=== PATIENT | female | born 1960 | race Caucasian/White ===

== ENCOUNTER 2020-03-01 12:30 | Inpatient (IN) ==
[2020-03-01] MEDS ORDERED: ONDANSETRON INJ 2 MG/ML 2 ML VIAL IV STA (12:55)
[2020-03-01] MEDS ORDERED: MoRPHine SULFATE 4 MG/ML 1 ML CARP\\VIAL IV STA (12:55)
[2020-03-01] MEDS ORDERED: SODIUM CHLORIDE 0.9% 1000ML 1,000 ML IV SCH (12:56)
--- NOTE | 2020-03-01 13:05 | Emergency Department Note ---
History of Present Illness General Chief complaint: Abdominal Pain Stated complaint: SEVERE ABDOMINAL PAIN Time Seen by Provider: 03/01/20 12:36 History of Present Illness Maximum Pain Intensity: 9 Patient is a 60-year-old female who generally enjoys good health who was referred to the emergency department by her primary care provider's office for evaluation of abdominal pain x1 day. Patient relates that she woke up from sleep around 2 AM yesterday morning with severe upper abdominal pain. She states the pain is constant in nature and radiates toward the lower abdomen. She states that the pain is worse with eating or drinking, and she feels better when she is hunched and doubled over. She noted some indigestion yesterday when she was laying flat, but does not experience any of this when she is sitting upright. No nausea, vomiting, diarrhea or urinary symptoms although she does admit to anorexia. She tried calling her primary care provider's office they instructed her to take Tylenol which she did and it did not help. She is never had pain similar to this previously. She denies any unusual food or water consumption, no alcohol use, she does not smoke. No sick contacts at home. She had a colonoscopy about a month ago, which was clear. She does not need repeat scope for 10 years. She denies any chest pain, palpitations or shortness of breath. No fevers. She is status post x2 and JOSH/BSO. Patient notes that she went to the [facility] office today for a COVID-19 swab. She was told that in order to make a doctor's appointment at the office that she would need to have a COVID swab because she had an exposure at work. 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 She was notified that on February 13, she came into contact with a coworker who tested positive for COVID-19. The patient herself was not tested by work, and was told to monitor her symptoms for which she has had none. When she called the doctor's office regarding her current symptoms, she was told that she could not make an appointment until she had a negative COVID-19 swab which was done today and is pending. Home Medications Home Medications Medication Instructions Recorded Confirmed Type lactobacillus combination no.4 3,000 mmu cells PO DAILY 03/01/20 03/01/20 History [Probiotic] loratadine 10 mg PO QAM 03/01/20 03/01/20 History magnesium 250 mg PO QAM 03/01/20 03/01/20 History pediatric multivitamin [Gummy 2 tab PO QAM 03/01/20 03/01/20 History Swirls] Allergies Allergy/AdvReac Type Severity Reaction Status Date / Time No Known Allergies Allergy Verified 03/01/20 14:16 Past Med/Surg History Medical History Dyslipidemia Hodgkin's lymphoma As a child Surgical History H/O section History of colonoscopy History of foot surgery History of laparoscopy S/P JOSH-BSO Family History (Updated 03/01/20 @ 16:32 by Danica Quiles PA-C) Other Cancer Diabetes Hypertension Social History Smoking Status: Never smoker Hx Alcohol Use: No Hx Substance Use: No marital status: Current Living Situation: Family current occupational status: employed 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 [employer] Feels Safe at Home: Yes Review of Systems A total of 10 systems reviewed and were otherwise negative Physical Exam Vital Signs Vital Signs - 24 hr 03/01/20 12:32 03/01/20 13:31 03/01/20 14:00 Temperature 37.0 C Temperature Source Oral Pulse Rate 73 54 L 57 L Pulse Rate from SpO2 Sensor 54 L 57 L Respiratory Rate 18 14 13 Blood Pressure 118/82 122/68 112/69 Blood Pressure Mean 94 82 77 Pulse Oximetry 98 93 93 Oxygen Delivery Method Room Air Room Air Room Air Sepsis Recent Fever Within 48 Hours No Sepsis New/Unexplained Change in Mental Status N/A Sepsis Action Taken by Nursing No Action Required 03/01/20 14:30 03/01/20 15:00 03/01/20 15:30 Temperature Temperature Source Pulse Rate 56 L 64 73 Pulse Rate from SpO2 Sensor 56 L 64 70 Respiratory Rate 13 14 18 Blood Pressure 109/60 110/61 143/81 H Blood Pressure Mean 73 77 93 Pulse Oximetry 94 95 98 Oxygen Delivery Method Room Air Room Air Room Air Sepsis Recent Fever Within 48 Hours Sepsis New/Unexplained Change in Mental Status Sepsis Action Taken by Nursing CONSTITUTIONAL: Patient is an uncomfortable but nontoxic appearing 60-year-old female who is awake and alert and in mild distress due to her stated complaint. EYES: Pupils equal, round, reactive to light and accommodation. EOMs intact without nystagmus. Sclera are anicteric. ENT: Tympanic membranes intact, with normal landmarks. External canals are clear. Oral and nasopharynx are clear. Mucous membranes are moist, no lesions, tongue and gums appear normal. CARDIOVASCULAR: Regular rate and rhythm, with normal S1 and S2, no murmur or gallop or rub is heard. Peripheral pulses easily palpable. RESPIRATORY: Breath sounds equal and clear to auscultation without wheezes, rales, or rhonchi heard. Full and equal chest expansion without accessory muscle use or retractions. ABDOMEN: Bowel sounds are present and hyperactive, multiple well-healed surgical scars are noted throughout the anterior abdomen. The abdomen is soft, nondistended, mildly tender to palpation in the left upper quadrant, the left midabdomen, the left lower quadrant and in the suprapubic region. No pain in the right lower quadrant over McBurney's point. No pain in the right upper quadrant. No guarding or rebound. INTEGUMENTARY: No lesions or rash, normal skin turgor. LYMPH: No lymphadenopathy. Course Course The patient was seen and assessed as above. Old records are reviewed. She has no prior visits to this facility. She presents the emergency department for evaluation of 24 hours of diffuse abdominal pain. IV lock was initiated and laboratory studies were collected. She was made n.p.o. She was hydrated normal saline solution medicated with Zofran 4 mg and morphine 4 mg. CBC with diff erential, CMP, lipase and urinalysis were collected. CT scan of abdomen and pelvis with IV contrast was ordered. Laboratory studies noted a slightly elevated white count at 11,800, left shift and bandemia noted. No anemia. Electrolytes, renal functions liver functions and lipase are within normal limits. Urine microscopy notes 5-10 RBCs, greater than 30 epithelial cells and calcium oxalate crystals, otherwise is negative and without signs of infection. Patient was reassessed frequently, she felt improved with the IV pain medication, and was made aware of the results of her laboratory studies. Patient was reassessed when she returned from [place] CT scan of the abdomen and pelvis with IV contrast notes a small bowel obstruction with a transition point located within the mid abdomen. A small amount of ascites is noted, as well as left-sided mesenteric edema, likely reactive to the small bowel obstruction. Patient history, presentation and ED work-up were reviewed with attending alonzo schmitt. Patient was made aware of the results of her CT scan, and that further care in the hospital was recommended. [facility] as well as general surgery from [facility]. They will both be involved in managing the alonzo latham during her stay. Reevaluation(s) Reevaluation #1: Patient reassessed, feeling more improved with the IV pain medications, rating her pain a 4/10 down from a 9/10. Labs are still pending. Declined any additional medication needs. Time: 13:53 Reevaluation #2: Labs reviewed. She was told she should be going for CT shortly. Time: 14:16 Time: 15:17 Additional Reevaluation(s): CT is back, reviewed findings with patient. Admission/Observation recommended. Consultations Consultation #1: [facility]ist, Madyson Quiles PA-C Time: 15:21 Consultation #2: [facility], Karolyn Posey PA-C Time: 15:26 Administered Medications Discontinued Medications Sodium Chloride (Nss 1000ml) 1,000 mls @ 999 mls/hr IV .Q1H1M FERNANDEZ Stop: 03/01/20 13:56 Last Infusion: 03/01/20 14:28 Dose: 0 mls/hr Documented by: [id number] Admin: 03/01/20 13:25 Dose: 999 mls/hr Documented by: [id number] Ioversol (Ioversol 100ml) 93 ml IV ONCE ONE Stop: 03/01/20 14:48 Last Admin: 03/01/20 14:47 Dose: 93 ml Documented by: [id number] Morphine Sulfate (Morphine Sulfate 4 Mg/Ml 1 Ml Carp\Vial) 4 mg IV NOW STA Stop: 03/01/20 12:56 Last Admin: 03/01/20 13:25 Dose: 4 mg Documented by: [id number] Ondansetron HCl (Ondansetron Inj 2 Mg/Ml 2 Ml Vial) 4 mg IV NOW STA Stop: 03/01/20 12:56 Last Admin: 03/01/20 13:25 Dose: 4 mg Documented by: [id number] Medical Decision Making Differential Diagnosis Differential diagnoses entertained included UTI, pyelonephritis, renal colic, acute diverticulitis, bowel obstruction, perforation, abscess, mass or malignancy, infectious versus inflammatory colitis/enteritis, pancreatitis, biliary colic, acute cholecystitis, among others. Medical Records Attestation: I reviewed the patient's medical records. Home Medications Current Medication List: was personally reviewed by me Laboratory Data Attestation: I reviewed the patient's lab results. Result diagrams: 03/01/20 13:13 03/01/20 13:13 Lab Results 03/01/20 03/01/20 03/01/20 Range/Units 13:13 13:13 13:13 WBC 11.80 H (4.8-10.8) K/uL RBC 4.80 (4.2-5.4) M/uL Hgb 14.7 (12.0-16.0) g/dL Hct 44.2 (37-47) % MCV 92.1 (80-100) fL MCH 30.6 (25-34) pg MCHC 33.3 (32-36) g/dL RDW Std Deviation 45.5 (36.4-46.3) fL RDW Coeff of Colten 13.5 (11.5-14.5) % Plt Count 331 (130-400) K/uL MPV 10.7 H (7.4-10.4) fL Immature Gran % (Auto) 0.3 % Neut % (Auto) 73.8 % Lymph % (Auto) 16.1 % [place] % (Auto) 7.9 % Eos % (Auto) 1.7 % Baso % (Auto) 0.2 % Neut # (Auto) 8.72 H (1.4-6.5) K/uL Lymph # (Auto) 1.90 (1.2-3.4) K/uL [place] # (Auto) 0.93 H (0.11-0.59) K/uL Eos # (Auto) 0.20 (0-0.5) K/uL Baso # (Auto) 0.02 (0-0.2) K/uL Immature Gran # (Auto) 0.03 H (0.00-0.02) K/uL Sodium 138 (136-145) mmol/L Potassium 3.8 (3.5-5.1) mmol/L Chloride 105 (98-107) mmol/L Carbon Dioxide 26 (21-32) mmol/L Anion Gap 7.0 (3-11) BUN 14 (7-18) mg/dl Creatinine 1.00 (0.6-1.2) mg/dl Est Cr Clr Drug Dosing 54.7 ml/min Est GFR ( Amer) 70.4 Est GFR (Non-Af Amer) 60.8 BUN/Creatinine Ratio 14.2 (10-20) Glucose 96 (70-99) mg/dl Calcium 9.8 (8.5-10.1) mg/dl Total Bilirubin 0.4 (0.2-1) mg/dl AST 16 (15-37) U/L ALT 24 (12-78) U/L Alkaline Phosphatase 92 (45-117) U/L Total Protein 7.9 (6.4-8.2) gm/dl Albumin 3.4 (3.4-5.0) gm/dl Globulin 4.6 H (2.5-4.0) gm/dl Albumin/Globulin Ratio 0.8 L (0.9-2) Lipase 79 (73-393) U/L Urine Color Yellow Urine Appearance Cloudy A (Clear) Urine pH 5.5 (4.5-7.5) Ur Specific Morrison 1.022 (1.000-1.030) Urine Protein Negative (Negative) Urine Glucose (UA) Negative (Negative) Urine Ketones Negative (Negative) Urine Blood Negative (Negative) Urine Nitrite Negative (Negative) Urine Bilirubin Negative (Negative) Urine Urobilinogen Negative (Negative) Ur Leukocyte Esterase Negative (Negative) Urine WBC (Auto) 1-5 (0-5) /hpf Urine RBC (Auto) 5-10 H (0-4) /hpf U Hyaline Cast (Auto) 1-5 (0-5) /lpf U Epithel Cells (Auto) >30 H (0-5) /lpf Urine Bacteria (Auto) Negative (Negative) Urine Crystals Not Reportable Calcium Oxalate Crystal Present A (None Prsent) Imaging Data Attestation: I personally reviewed and interpreted this imaging study as follows: Radiologist's Impression: ABDOMEN AND PELVIS CT WITH IV CONTRAST CT DOSE: 630.87 mGycm HISTORY: Left-sided abdominal pain. TECHNIQUE: Multiaxial CT images of the abdomen and pelvis were performed following the use of intravenous contrast. A dose lowering technique was utilized adhering to the principles of ALARA. COMPARISON STUDY: None. FINDINGS: Mild dependent changes seen at the lung bases. Small left-sided fat-containing Bochdalek hernia. No pneumoperitoneum. No pneumatosis. No suspicious lytic are blastic osseous lesions. The uterus is surgically absent. The bladder is unremarkable. Small amount of ascites seen scattered throughout the abdomen and pelvis. A few mildly dilated and fluid-filled loops of small b owel within the mid left abdomen focal transition point within the midabdomen at the level the umbilicus best seen on image 217. This is at the expected location of the distal jejunum. Therefore, these findings are consistent with a bowel obstruction. The stomach is also mildly distended and fluid-filled. Mild mesenteric edema along the left side of the abdomen which may be reactive to the small bowel obstruction. The appendix is not identified with certainty and may be surgically absent given the history of a hysterectomy. No retroperitoneal lymphadenopathy. The liver, gallbladder, spleen, adrenal glands, pancreas, and kidneys are within normal limits. IMPRESSION: 1. Small bowel obstruction with the transition point located within the midabdomen as described above. 2. Small amount of ascites seen scattered throughout the abdomen and mild left- sided mesenteric edema. This may be reactive to the small bowel obstruction. 3. Prior hysterectomy. Blood Pressure Blood Pressure Findings: Normal blood pressure Blood Pressure Disposition: did not require urgent referral MDM Narrative See ED Course. Impression & Plan Small bowel obstruction Discharge Plan Visit Data Chief Complaint: Abdominal Pain Stated Complaint: SEVERE ABDOMINAL PAIN ED Provider: Aubrey [facility] ED Midlevel Provider: Beth Cannon Discharge Problem: Small bowel obstruction Patient Disposition: Admitted As Inpatient Discharge Instructions Interventions: ED Discharge Assessment Last Done: 03/01/20 18:00
[2020-03-01 13:21] LABS: Basophils # (auto) 0.02 K/uL (0-0.2); Basophils % (auto) 0.2 %; Eosinophils % (auto) 1.7 %; Hematocrit (blood only) 44.2 % (37-47); Hemoglobin 14.7 g/dL (12.0-16.0); Immature Granulocytes # (auto) 0.03 K/uL (0.00-0.02); Immature Granulocytes % (auto) 0.3 %; Lymphocytes % (auto) 16.1 %; Mean Corpuscular Hemoglobin 30.6 pg (25-34); Mean Corpuscular Hgb Conc 33.3 g/dL (32-36); Mean Corpuscular Volume 92.1 fL (80-100); Mean Platelet Volume 10.7 fL (7.4-10.4); Monocytes # (auto) 0.93 K/uL (0.11-0.59); Monocytes % (auto) 7.9 %; Neutrophils # (auto) 8.72 K/uL (1.4-6.5); Neutrophils % (auto) 73.8 %; Platelet Count 331 K/uL (130-400); RDW Coefficient of Variation 13.5 % (11.5-14.5); RDW Standard Deviation 45.5 fL (36.4-46.3)
[2020-03-01 13:44] LABS: Appearance Urine Cloudy (Clear); Bacteria Urine Automated Negative (Negative); Bilirubin Urine Negative (Negative); Blood Urine Negative (Negative); Color Urine Yellow; Epithelial Cell Urine Auto >30 /lpf (0-5); Glucose Urine UA Negative (Negative); Ketones Urine Negative (Negative); Leukocyte Esterase Urine Negative (Negative); Nitrite Urine Negative (Negative); Protein Urine Negative (Negative); Specific Gravity Urine 1.022 (1.000-1.030); Urobilinogen Urine Negative (Negative); pH Urine 5.5 (4.5-7.5)
[2020-03-01 13:58] LABS: Calcium Oxalate Crystals Urine Present (None Prsent)
[2020-03-01 14:03] LABS: Albumin Globulin Ratio 0.8 (0.9-2); Albumin Level 3.4 gm/dl (3.4-5.0); BUN Creatinine Ratio 14.2 (10-20); Bilirubin,Total 0.4 mg/dl (0.2-1); Calcium 9.8 mg/dl (8.5-10.1); Creatinine Clr Calc Pharmacy 54.7 ml/min; Est GFR (African American) 70.4; Est GFR (Non-African American) 60.8; Globulin 4.6 gm/dl (2.5-4.0); Potassium 3.8 mmol/L (3.5-5.1); Total Protein 7.9 gm/dl (6.4-8.2)
[2020-03-01] MEDS ORDERED: IOVERSOL 100ml IV ONE (14:47)
--- NOTE | 2020-03-01 15:01 | CT Scan Report ---
ABDOMEN AND PELVIS CT WITH IV CONTRAST CT DOSE: 630.87 mGycm HISTORY: Left-sided abdominal pain. TECHNIQUE: Multiaxial CT images of the abdomen and pelvis were performed following the use of intrave nous contrast. A dose lowering technique was utilized adhering to the principles of ALARA. COMPARISON STUDY: None. FINDINGS: Mild dependent changes seen at the lung bases. Small left-sided fat-containing Bochdalek he rnia. No pneumoperitoneum. No pneumatosis. No suspicious lytic are blastic osseous lesions. The uteru s is surgically absent. The bladder is unremarkable. Small amount of ascites seen scattered throughou t the abdomen and pelvis. A few mildly dilated and fluid-filled loops of small bowel within the mid l eft abdomen focal transition point within the midabdomen at the level the umbilicus best seen on imag e 217. This is at the expected location of the distal jejunum. Therefore, these findings are consiste nt with a bowel obstruction. The stomach is also mildly distended and fluid-filled. Mild mesenteric e ivy along the left side of the abdomen which may be reactive to the small bowel obstruction. The quinton endix is not identified with certainty and may be surgically absent given the history of a hysterecto my. No retroperitoneal lymphadenopathy. The liver, gallbladder, spleen, adrenal glands, pancreas, and kidneys are within normal limits. IMPRESSION: 1. Small bowel obstruction with the transition point located within the midabdomen as described above . 2. Small amount of ascites seen scattered throughout the abdomen and mild left-sided mesenteric edema . This may be reactive to the small bowel obstruction. 3. Prior hysterectomy. ACT 112: Negative or not required by law. Electronically signed by: Trae Briceno M.D. 03/01/2020 3:00 PM
--- NOTE | 2020-03-01 15:30 | Surgery Consultation ---
Date of Consultation March 01, 2020 Assessment & Plan (1) Small bowel obstruction: This is a 60y F with no significant PMH who presents to the [facility] ED on 03/01/20 with complaints of abdominal pain x1 day. Workup in the ED revealed findings concerning for a small bowel obstruction with transition point in the mid-abdomen. Patient's abdomen is soft with some tenderness to palpation appreciated infraumbilically and around the LUQ. Patient has a h/o JOSH-BSO, csection x2, and lysis of adhesions. Her vital signs are stable with HR in the 50-70s. At this time we would recommend a trial of conservative management with bowel rest and IVF hydration. She denies any nausea/vomiting so okay to hold off on NGT for the time being. Should her symptoms worsen and she develop nausea/vomiting we would recommend revisiting placing an NGT at that time. Appreciate hospitalists admitting patient. We will continue to follow. History of Present Illness History of Present Illness This is a 60y F with no significant PMH who presents to the [facility] ED on 03/01/20 with complaints of abdominal pain. Patient reports her pain started acutely Saturday at 2am. She reports the pain started in her upper abdomen and has since been radiating towards the mid and lower abdomen. At home she tried taking Tylenol and using heating pads without relief. Her pain remained constant & sharp and due to ongoing intensity she reported to the ED for further evaluation. In the ED patient underwent a CT a/p that revealed a small bowel obstruction with the transition point located within the midabdomen. There is a small amount of ascites seen scattered throughout the abdomen and mild left- sided mesenteric edema. She states the pain was a 9/10 when she came in and now after morphine administration she rates it about a 4/10. Patient reports she nev er experienced an episode of pain like this before and this is the first time she has had a bowel obstruction. Her prior surgical history includes a JOSH-BSO ~20years ago, C-sectionx2, and she states she has also had a laparoscopic lysis of adhesions but cannot recall much history related to it. She reports she had some toast yesterday and this AM, but has not had much of an appetite related to the pain. She denies fevers, nausea or vomiting. Her last BM was yesterday AM. She is passing some flatus. Surgery was consulted for further evaluation. Allergies Allergy/AdvReac Type Severity Reaction Status Date / Time No Known Allergies Allergy Verified 03/01/20 14:16 Home Medications Home Medications Medication Instructions Recorded Confirmed Type lactobacillus combination no.4 3,000 mmu cells PO DAILY 03/01/20 03/01/20 History [Probiotic] loratadine 10 mg PO QAM 03/01/20 03/01/20 History magnesium 250 mg PO QAM 03/01/20 03/01/20 History pediatric multivitamin [Gummy 2 tab PO QAM 03/01/20 03/01/20 History Swirls] Patient History Medical History Dyslipidemia Hodgkin's lymphoma As a child Surgical History H/O section History of colonoscopy History of foot surgery History of laparoscopy S/P JOSH-BSO Family History (Updated 03/01/20 @ 16:32 by Danica Quiles PA-C) Other Cancer Diabetes Hypertension Social History Smoking Status: Never smoker Hx Alcohol Use: No Hx Substance Use: No Preferred Language: [place]an Communication Ability: Effective Rv Servicer Required: No Beliefs That Will Affect Care: None marital status: Current Living Situation: Spouse current occupational status: employed 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 Other Information That Helps Us Care for You: No Feels Safe at Home: Yes Safety Concerns: Feels Safe At This Time Review of Systems Constitutional: + chills; no fever Respiratory: no dyspnea Cardiovascular: no chest pain Gastrointestinal: + abdominal pain and + bloating; no nausea, no vomiting and no change in bowel habits last BM yesterday AM, passing some flatus Physical Exam Physical Exam: awake/alert Constitutional: well developed and well nourished; no acute distress Respiratory: normal respiratory effort Gastrointestinal (Abdomen): Inspection/Auscultation: + abdomen distended (minimally) and + abdominal surgical scar (midline infraumbilical scar and pfannisteal scar, healed well) Percussion/Palpation: + abdomen tender (ttp infraumbilically and around LUQ) and abdomen soft Results & Data ([facility]) Vital Signs (Past 12 Hours) Vital Signs Temp Pulse Resp BP Pulse Ox 03/01/20 15:00 64 14 110/61 95 03/01/20 14:30 56 L 13 109/60 94 03/01/20 14:00 57 L 13 112/69 93 03/01/20 13:31 54 L 14 122/68 93 03/01/20 12:32 37.0 C 73 18 118/82 [address] WITH IV CONTRAST CT DOSE: 630.87 mGycm HISTORY: Left-sided abdominal pain. TECHNIQUE: Multiaxial CT images of the abdomen and pelvis were performed following the use of intravenous contrast. A dose lowering technique was utilized adhering to the principles of ALARA. COMPARISON STUDY: None. FINDINGS: Mild dependent changes seen at the lung bases. Small left-sided fat- containing Bochdalek hernia. No pneumoperitoneum. No pneumatosis. No suspicious lytic are blastic osseous lesions. The uterus is surgically absent. The bladder is unremarkable. Small amount of ascites seen scattered throughout the abdomen and pelvis. A few mildly dilated and fluid-filled loops of small bowel within the mid left abdomen focal transition point within the midabdomen at the level the umbilicus best seen on image 217. This is at the expected location of the distal jejunum. Therefore, these findings are consistent with a bowel obstruction. The stomach is also mildly distended and fluid-filled. Mild mesenteric edema along the left side of the abdomen which may be reactive to the small bowel obstruction. The appendix is not identified with certainty and may be surgically absent given the history of a hysterectomy. No retroperitoneal lymphadenopathy. The liver, gallbladder, spleen, adrenal glands, pancreas, and kidneys are within normal limits. IMPRESSION: 1. Small bowel obstruction with the transition point located within the midabdomen as described above. 2. Small amount of ascites seen scattered throughout the abdomen and mild left- sided mesenteric edema. This may be reactive to the small bowel obstruction. 3. Prior hysterectomy. ACT 112: Negative or not required by law. Electronically signed by: Trae Briceno M.D. 03/01/2020 3:00 PM PG Care Time/CCT Total # of Minutes Spent Total Time Spent with Patient: Total time spent is greater than 50% in coordination of care (as documented) at patient's floor/unit and/or counseling patient: Coding Level of Care Code 90911 Inpt Consult Level 4 Diagnoses Small bowel obstruction K56.609
--- NOTE | 2020-03-01 16:35 | History & Physical Report ---
Date of Service March 01, 2020 Assessment & Plan (1) Small bowel obstruction: Pt is 60 y/o F with PMH diet controlled dyslipidemia presented to ER with c/o abdominal pain x 1-2 days. C/O upper abdominal pain initially and today diffuse abdominal pain that worsened. No vomiting or diarrhea. Not passing flatus today. H/O , hysterectomy and lysis of adhesions in past. In ER pt afebrile, P: 73, R: 18, BP: 118/82, 98%. WBC: 11 CT Abd/Pelvis: 1. Small bowel obstruction with the transition point located within the midabdomen as described above. 2. Small amount of ascites seen scattered throughout the abdomen and mild left- sided mesenteric edema. This may be reactive to the small bowel obstruction. 3. Prior hysterectomy -In ER given 1L NSS, Zofran, Morphine -NPO -IVF -No vomiting at this time and will hold on NG tube. If pt develops vomiting will place NG tube. -IV Tylenol prn pain, morphine prn pain, Zofran prn N/V -KUB in AM -General surgery consult, saw in ER and recommend conservative measures at this time -CBC, BMP in am (2) Exposure to COVID-19 virus: Pt had exposure to co-worker on 02/14/2020 who tested positive for COVID-19. That co-worker has been out of work since and pt denies any other co-workers with any symptoms or illness. Pt has not had any fever, vomiting, diarrhea, cough, SOB, rhinorrhea, sore throat She was unable to be seen outpatient clinic until she had Covid-19 testing which she had completed this morning on 03/01/2020 -Very low suspicion for Covid-19 at this time as pt otherwise asymptomatic and has abdominal pain secondary to SBO and has not been around co-worker for 15 days and has had no other known exposures. -Will place on airborne & contact precautions for now until her outpatient Covid 19 test is resulted (3) Dyslipidemia: Diet controlled DVT Prophylaxis -SCDs Full Code as per discussion with pt Follows with Dr Saxena for routine care Pt was seen and care coordinated with Dr Patel. See addendum. History of Present Illness Chief Complaint: Abdominal pain Primary Care Provider: Zuleima Saxena MD Pt is 60 y/o F with PMH diet controlled dyslipidemia presented to ER with c/o abdominal pain x 1-2 days. C/O upper abdominal pain initially and today diffuse abdominal pain that worsened. Tried tea and toast this morning which aggravated pain. Some nausea without vomiting or diarrhea. Denies passing flatus today. Denies any fever or chills. H/O , hysterectomy and lysis of adhesions in past. Denies h/o SBO. Pt had exposure to co-worker on 02/14/2020 who tested positive for COVID-19. That co-worker has been out of work since and pt denies any other co-workers with any symptoms or illness. Pt has not had any fever, vomiting, diarrhea, cough, SOB, rhinorrhea, sore throat. Denies diaphoresis, JAY, dizziness, syncope, vision changes, neck pain, CP, SOB, orthopnea, palpitations, cough, choking, otalgia, paresthesias, weakness, extremity weakness, extremity edema, rashes, urinary symptoms. Allergies Allergy/AdvReac Type Severity Reaction Status Date / Time No Known Allergies Allergy Verified 03/01/20 14:16 Home Medications Home Medications Medication Instructions Recorded Confirmed Type lactobacillus combination no.4 3,000 mmu cells PO DAILY 03/01/20 03/01/20 History [Probiotic] loratadine 10 mg PO QAM 03/01/20 03/01/20 History magnesium 250 mg PO QAM 03/01/20 03/01/20 History pediatric multivitamin [Gummy 2 tab PO QAM 03/01/20 03/01/20 History Swirls] Past Med/Surg History Medical History Dyslipidemia Hodgkin's lymphoma As a child Surgical History H/O section History of colonoscopy History of foot surgery History of laparoscopy S/P JOSH-BSO Family History (Updated 03/01/20 @ 16:32 by Danica Quiles PA-C) Other Cancer Diabetes Hypertension Social History (Updated 03/01/20 @ 16:33 by Danica Quiles PA-C) Smoking Status: Never smoker Hx Alcohol Use: No Hx Substance Use: No marital status: Current Living Situation: Family current occupational status: employed 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 Feels Safe at Home: Yes Review of Systems Review of Systems: All systems reviewed & are unremarkable except as noted in HPI & below Physical Exam Physical Exam: General: no distress, WDWN Head: normocephalic, atraumatic Eyes: conjunctiva non-injected, anicteric ENT: normal inspection external ears, nose, mucous membranes moist Neck: supple, trachea midline Lungs: clear, no respiratory distress, no wheezing/rhonchi/rales CV: RRR, no murmur, no JVD, no pretibial edema Abd: hypoactive BS, soft, mild tenderness to palpation LUQ without rebound or guarding Ext: no cyanosis, no calf tenderness Neuro: A&O x 3, no focal deficits noted, normal affect Skin: warm, dry Results & Data Results & Data ([facility]) Vital Signs (Past 12 Hours) Vital Signs Temp Pulse Resp BP Pulse Ox 03/01/20 15:30 73 18 143/81 H 98 03/01/20 15:00 64 14 110/61 95 03/01/20 14:30 56 L 13 109/60 94 03/01/20 14:00 57 L 13 112/69 93 03/01/20 13:31 54 L 14 122/68 93 03/01/20 12:32 37.0 C 73 18 118/82 98 Laboratory Results Short CBC 03/01/20 Range/Units 13:13 WBC 11.80 H (4.8-10.8) K/uL Hgb 14.7 (12.0-16.0) g/dL Hct 44.2 (37-47) % Plt Count 331 (130-400) K/uL BMP 03/01/20 13:13 Sodium 138 Potassium 3.8 Chloride 105 Carbon Dioxide 26 BUN 14 Creatinine 1.00 Glucose 96 Calcium 9.8 Liver Function 03/01/20 Range/Units 13:13 Total Bilirubin 0.4 (0.2-1) mg/dl AST 16 (15-37) U/L ALT 24 (12-78) U/L Alkaline Phosphatase 92 (45-117) U/L Albumin 3.4 (3.4-5.0) gm/dl Urine 03/01/20 Range/Units 13:13 Urine Color Yellow Urine Appearance Cloudy A (Clear) Urine pH 5.5 (4.5-7.5) Ur Specific [place] 1.022 (1.000-1.030) Urine Protein Negative (Negative) Urine Glucose (UA) Negative (Negative) Diagnostic Findings CT ABD/PELVIS: IMPRESSION: 1. Small bowel obstruction with the transition point located within the midabdom en as described above. 2. Small amount of ascites seen scattered throughout the abdomen and mild left- sided mesenteric edema. This may be reactive to the small bowel obstruction. 3. Prior hysterectomy. Code Status & VTE Plan VTE Prophylaxis Plan VTE Prophylaxis will be ordered: Yes Supervising Physician Co-Signing Physician Notes Attending addendum: The patient was seen and examined in emergency room She is a 60-year-old female with significant past surgical history of section and bilateral salpingo-oophorectomy has been complaining of abdominal pain for the last 4 days with bloating and nausea She still complains pain in the abdomen during examination Denies any other symptoms . On examination Anxious without any significant distress Hemodynamically stable Chest-clear to auscultate bilaterally Heart-S1-S2 regular Abdomen-minimally distended, soft, mildly tender in epigastrium and all over without any guarding and rigidity, bowel sounds present Extremities-trace edema bilateral Admission labs and imaging studies reviewed CT of the abdomen pelvis did show SBO Surgery consulted Apparently she was exposed to a cold with positive patient about 14 days ago. Doubt any COVID and the COVID test is pending as an outpatient. She will be under PUI until the test comes back. Agree with assessment plan as outlined above by EVANGELISTA Tam Dr
[2020-03-01] MEDS ORDERED: ONDANSETRON INJ 2 MG/ML 2 ML VIAL IV PRN (18:16)
[2020-03-01] MEDS ORDERED: MoRPHine SULFATE 4 MG/ML 1 ML CARP\\VIAL IV PRN (18:16)
[2020-03-01] MEDS: D5W AND NSS 1,000 ML IV SCH (19:27)
[2020-03-01] MEDS: ACETAMINOPHEN 1000 MG/100 ML IV IV PRN (19:30)
[2020-03-02] MEDS: ACETAMINOPHEN 1000 MG/100 ML IV IV PRN ×3 (03:43→21:21)
[2020-03-02] MEDS: D5W AND NSS 1,000 ML IV SCH (08:13)
[2020-03-02 08:17] LABS: Basophils # (auto) 0.03 K/uL (0-0.2); Basophils % (auto) 0.4 %; Eosinophils # (auto) 0.34 K/uL (0-0.5); Eosinophils % (auto) 4.7 %; Hematocrit (blood only) 36.6 % (37-47); Hemoglobin 12.3 g/dL (12.0-16.0); Immature Granulocytes # (auto) 0.01 K/uL (0.00-0.02); Immature Granulocytes % (auto) 0.1 %; Lymphocytes # (auto) 2.22 K/uL (1.2-3.4); Mean Corpuscular Hemoglobin 31.7 pg (25-34); Mean Corpuscular Hgb Conc 33.6 g/dL (32-36); Mean Corpuscular Volume 94.3 fL (80-100); Monocytes # (auto) 0.75 K/uL (0.11-0.59); Monocytes % (auto) 10.5 %; Neutrophils # (auto) 3.82 K/uL (1.4-6.5); Neutrophils % (auto) 53.3 %; Platelet Count 287 K/uL (130-400); RDW Coefficient of Variation 13.8 % (11.5-14.5); RDW Standard Deviation 47.8 fL (36.4-46.3); Red Blood Count 3.88 M/uL (4.2-5.4); White Blood Count 7.17 K/uL (4.8-10.8)
[2020-03-02 08:40] LABS: BUN Creatinine Ratio 17.8 (10-20); Calcium 8.6 mg/dl (8.5-10.1); Creatinine Clr Calc Pharmacy 71.1 ml/min; Est GFR (African American) 96.6; Est GFR (Non-African American) 83.3; Magnesium 1.9 mg/dl (1.8-2.4); Potassium 3.8 mmol/L (3.5-5.1)
--- NOTE | 2020-03-02 08:43 | Surgery Progress Note ---
Date of Service March 02, 2020 Assessment & Plan (1) Small bowel obstruction: clinically improving. no bowel fx yet AM KUB pending. will evaluate that prior to considering starting clears. will continue to follow along closely. no indication for urgent surgery at this time. Admission and Anticipated Discharge Date Admission Date: March 01, 2020 Subjective pt seen. feeling much better than yesterday. still generalized abdominal discomfort but much improved. no nausea. +flatus. no bowel fx. Physical Exam Physical Exam: alert. oriented. nad HEENT: [place]AR[place]. EOMI Abd: soft. mild distension. mild lower abdominal ttp. no g/r/r. ext: no c/c/e Results & Data ([facility]) Vital Signs (Past 12 Hours) Vital Signs Temp Pulse Resp BP BP Pulse Ox 03/02/20 08:15 36.6 C 54 L 16 100/63 95 03/01/20 23:54 36.7 C 55 L 14 92/57 L 94 PG Care Time/CCT Total # of Minutes Spent Total Time Spent with Patient: Total time spent is greater than 50% in coordination of care (as documented) at patient's floor/unit and/or counseling patient: Coding Level of Care Code 51588 Subseq Hosp Care Lvl 3 Diagnoses Small bowel obstruction K56.609
--- NOTE | 2020-03-02 11:02 | XRay Report ---
KUB CLINICAL HISTORY: Small bowel obstruction. FINDINGS: An AP, portable, supine abdominal radiograph is compared to study dated 03/01/2020. There is no radiographic evidence of high-grade bowel obstruction. Mildly distended and gas-filled small cheryl l loops in the left mid abdomen measure up to 3 cm. Mild fecal retention is noted in the colon. No ev idence of intraperitoneal free air is seen on this supine image. There are no abnormal abdominal calc ifications. Numerous phleboliths are observed in the pelvis. Excreted IV contrast is noted in the salma dder. The skeletal structures are osteopenic and appear intact. IMPRESSION: 1. There is no radiographic evidence of high-grade bowel obstruction. 2. Mildly distended and gas-filled loops of small bowel in the left midabdomen likely correspond to t he low-grade bowel obstruction seen on yesterday's CT scan. Electronically signed by: Enrique Samuels M.D. 03/02/2020 11:01 AM
--- NOTE | 2020-03-02 11:28 | Hospitalist Progress Note ---
Date of Service March 02, 2020 Assessment & Plan (1) Small bowel obstruction: Mild tenderness on exam today. No need for NGT at this time. WBC resolved to normal and pain/symptoms improved overnight per patient report this morning. Cont APAP and NPO status with persistent KUB on imaging this morning. Appreciate surgery following case and helping to advance her diet when appropriate. (2) Exposure to COVID-19 virus: Pt had exposure to co-worker on 02/14/2020 who tested positive for COVID-19. That co-worker has been out of work since and pt denies any other co-workers with any symptoms or illness. Pt has not had any fever, vomiting, diarrhea, cough, SOB, rhinorrhea, sore throat COVID test report was negative as of this morning and a copy was placed in her chart with precautions removed. 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 She reports feeling much better this morning with slight residual pain. No bowel movement overnight. She remains NPO and pain is controlled with IV Tylenol. Abdomen is soft and nondistended. Hypoactive bowel sounds and generalized TTP with LUQ being the worse sight of pain. Afebrile overnight and she denies nausea or vomiting. Review of Systems Review of Systems: All systems reviewed & are unremarkable except as noted in Subjective Physical Exam Physical Exam: CONSTITUTIONAL: WNWD, vitals as above, generally well- appearing EYES: pupils are equal and round bilaterally, normal conjunctivae, no scleral icterus ENT: MMM RESPIRATORY: clear to auscultation bilaterally, no crackles, rales or wheezes, normal respiratory effort CARDIOVASCULAR: regular rate and rhythm, S1 and 2 heard without murmurs, garcia ps or rubs, no JVD, no peripheral edema GASTROINTESTINAL: hypoactive bowel sounds, soft, tender to palpation in LUQ>epigastric>RUQ with a generalized tenderness. Nondistended. MUSCULOSKELETAL: strength 5/5 throughout, head is normocephalic and atraumatic SKIN: warm and dry NEUROLOGIC: No facial palsy, no dysarthria. Touch, pain and proprioception normal. CN 2-12 grossly intact, no sensory deficit, normal cognition, normal speech, no tremor PSYCHIATRIC: alert cooperative and oriented to person, place and time. Results & Data Results & Data ([facility]) Vital Signs (Past 12 Hours) Vital Signs Temp Pulse Resp BP BP Pulse Ox 03/02/20 08:15 36.6 C 54 L 16 100/63 95 03/01/20 23:54 36.7 C 55 L 14 92/57 L 94 Laboratory Results Short CBC 03/01/20 03/02/20 Range/Units 13:13 07:51 WBC 11.80 H 7.17 (4.8-10.8) K/uL Hgb 14.7 12.3 (12.0-16.0) g/dL Hct 44.2 36.6 L (37-47) % Plt Count 331 287 (130-400) K/uL BMP 03/01/20 03/02/20 13:13 07:51 Sodium 138 142 Potassium 3.8 3.8 Chloride 105 113 H Carbon Dioxide 26 26 BUN 14 14 Creatinine 1.00 0.77 Glucose 96 105 H Calcium 9.8 8.6 Liver Function 03/01/20 Range/Units 13:13 Total Bilirubin 0.4 (0.2-1) mg/dl AST 16 (15-37) U/L ALT 24 (12-78) U/L Alkaline Phosphatase 92 (45-117) U/L Albumin 3.4 (3.4-5.0) gm/dl Urine 03/01/20 Range/Units 13:13 Urine Color Yellow Urine Appearance Cloudy A (Clear) Urine pH 5.5 (4.5-7.5) Ur Specific [place] 1.022 (1.000-1.030) Urine Protein Negative (Negative) Urine Glucose (UA) Negative (Negative) Diagnostic Findings KUB CLINICAL HISTORY: Small bowel obstruction. FINDINGS: An AP, portable, supine abdominal radiograph is compared to study dated 03/01/2020. There is no radiographic evidence of high-grade bowel ob struction. Mildly distended and gas-filled small bowel loops in the left mid abdomen measure up to 3 cm. Mild fecal retention is noted in the colon. No evidence of intraperitoneal free air is seen on this supine image. There are no abnormal abdominal calcifications. Numerous phleboliths are observed in the pelvis. Excreted IV contrast is noted in the bladder. The skeletal structures are osteopenic and appear intact. IMPRESSION: 1. There is no radiographic evidence of high-grade bowel obstruction. 2. Mildly distended and gas-filled loops of small bowel in the left midabdomen likely correspond to the low-grade bowel obstruction seen on yesterday's CT scan. Electronically signed by: Enrique Samuels M.D. 03/02/2020 11:01 AM Medications Administered Current Inpatient Medications Acetaminophen (Acetaminophen 1000 Mg/100 Ml Iv) 1,000 mg IV Q8H PRN PRN Reason: Pain or Fever Stop: 03/04/20 18:15 Last Admin: 03/02/20 03:43 Dose: 1,000 mg Documented by: Dextrose/Sodium Chloride (D5w And Nss) 1,000 mls @ 80 mls/hr IV .[id number] FERNANDEZ Stop: 03/02/20 19:59 Last Admin: 03/02/20 08:13 Dose: 80 mls/hr Documented by: Morphine Sulfate (Morphine Sulfate 4 Mg/Ml 1 Ml Carp\Vial) 3 mg IV Q4H PRN PRN Reason: Moderate Pain Stop: 03/15/20 18:15 Ondansetron HCl (Ondansetron Inj 2 Mg/Ml 2 Ml Vial) 4 mg IV Q6H PRN PRN Reason: Nausea Stop: 03/31/20 18:15
[2020-03-02] MEDS: ENOXAPARIN INJ 40 MG/0.4 ML SYR SQ SCH (12:44)
[2020-03-02] MEDS ORDERED: D5W AND LACTATED RINGERS 1,000 ML IV SCH (22:00)
[2020-03-03] MEDS: D5NSS + 20MEQ KCL 20 MEQ/1,000 ML BAG IV SCH ×2 (00:31→12:39)
[2020-03-03 06:17] LABS: Hematocrit (blood only) 35.8 % (37-47); Hemoglobin 11.7 g/dL (12.0-16.0); Mean Corpuscular Hemoglobin 30.5 pg (25-34); Mean Corpuscular Hgb Conc 32.7 g/dL (32-36); Mean Corpuscular Volume 93.2 fL (80-100); Mean Platelet Volume 10.7 fL (7.4-10.4); Platelet Count 287 K/uL (130-400); RDW Coefficient of Variation 13.3 % (11.5-14.5); RDW Standard Deviation 45.2 fL (36.4-46.3); Red Blood Count 3.84 M/uL (4.2-5.4)
[2020-03-03 06:50] LABS: BUN Creatinine Ratio 13.9 (10-20); Calcium 8.4 mg/dl (8.5-10.1); Creatinine Clr Calc Pharmacy 77.1 ml/min; Est GFR (African American) 106.5; Est GFR (Non-African American) 91.9; Magnesium 1.7 mg/dl (1.8-2.4); Potassium 3.9 mmol/L (3.5-5.1)
--- NOTE | 2020-03-03 07:53 | XRay Report ---
KUB HISTORY: Small bowel obstruction. Follow-up. COMPARISON: KUB 03/02/2020. FINDINGS: Interval improvement in the nondilated gas-filled loops of small bowel within the left side the abdomen. These currently measure up to 2.1 cm in diameter, previously measuring 2.9 cm. There is gas seen throughout the colon. No renal calculi. No ureteral calculi. Calcifications in the deep pe lvis likely represent phleboliths. No pneumoperitoneum or pneumatosis. IMPRESSION: Interval improvement/resolution of the dilated loops of small bowel. ACT 112: Negative or not required by law. Electronically signed by: Trae Briceno M.D. 03/03/2020 7:52 AM
[2020-03-03] MEDS: ENOXAPARIN INJ 40 MG/0.4 ML SYR SQ SCH (09:01)
--- NOTE | 2020-03-03 10:31 | Surgery Progress Note ---
Date of Service March 03, 2020 Assessment & Plan (1) Small bowel obstruction: clinically improving. resolved on xray will start clears and slowly advance over next 24-36 hours await full return of bowel fx prior to d/c. Admission and Anticipated Discharge Date Admission Date: March 01, 2020 Subjective pt continues to improve. +flatus. no bm yet. no pain or nausea currently. Physical Exam Physical Exam: alert. nad abd: soft. nt. minimal distension. Results & Data ([facility]) Vital Signs (Past 12 Hours) Vital Signs Temp Pulse Resp BP BP Pulse Ox 03/03/20 07:58 36.6 C 47 L 15 126/78 96 03/02/20 23:45 36.7 C 50 L 16 104/66 93 PG Care Time/CCT Total # of Minutes Spent Total Time Spent with Patient: Total time spent is greater than 50% in coordination of care (as documented) at patient's floor/unit and/or counseling patient: Coding Level of Care Code 12179 Subseq Hosp Care Lvl 2 Diagnoses Small bowel obstruction K56.609
[2020-03-03] MEDS: MAGNESIUM SULFATE / D5W 1 GM/100 ML BAG IV SCH ×2 (11:37→13:47)
--- NOTE | 2020-03-03 13:15 | Hospitalist Progress Note ---
Date of Service March 03, 2020 Assessment & Plan (1) Small bowel obstruction: Tenderness has improved, KUB revealed resolution of SBO. Tolerating clears. Reports having a small BM this morning, too. Cont to advance diet as tolerated. (2) Exposure to COVID-19 virus: Pt had exposure to co-worker on 02/14/2020 who tested positive for COVID-19. That co-worker has been out of work since and pt denies any other co-workers with any symptoms or illness. Pt has not had any fever, vomiting, diarrhea, cough, SOB, rhinorrhea, sore throat COVID test report was negative as of 03/02 and a copy was placed in her chart with precautions removed. 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 Has been off oral home magnesium supplements. (5) DVT prophylaxis: Lovenox/SCDs Full Code Dispo-home when able to tolerate solid foods. Tatiana Cerrato DO [facility] Hospitalist Admission and Anticipated Discharge Date Admission Date: March 01, 2020 Subjective Reports pain is almost resolved. KUB revealed resolution of obstruction this am. Started clears and is tolerating well. Mg IV given. Pt normally takes Mag supplements at home. ROS is otherwise negative. Pt requests [facility] paperwork to be filled out. Review of Systems Review of Systems: All systems reviewed & are unremarkable except as noted in Subjective Physical Exam Physical Exam: CONSTITUTIONAL: WNWD, vitals as above, generally well- appearing EYES: pupils are equal and round bilaterally, normal conjunctivae, no scleral icterus ENT: MMM RESPIRATORY: clear to auscultation bilaterally, no crackles, rales or wheezes, normal respiratory effort CARDIOVASCULAR: regular rate and rhythm, S1 and 2 heard without murmurs, gallops or rubs, no JVD, no peripheral edema GASTROINTESTINAL: hypoactive bowel sounds, soft, still slight tenderness to palpation of LUQ however, significantly improved from yesterday. Nondistended. MUSCULOSKELETAL: strength 5/5 throughout, head is normocephalic and atraumatic SKIN: warm and dry NEUROLOGIC: No facial palsy, no dysarthria. Touch, pain and proprioception normal. CN 2-12 grossly intact, no sensory deficit, normal cognition, normal speech, no tremor PSYCHIATRIC: alert cooperative and oriented to person, place and time. Results & Data Results & Data ([facility]) Vital Signs (Past 12 Hours) Vital Signs Temp Pulse Resp BP Pulse Ox 03/03/20 07:58 36.6 C 47 L 15 126/78 96 Laboratory Results Short CBC 03/03/20 Range/Units 06:03 WBC 5.60 (4.8-10.8) K/uL Hgb 11.7 L (12.0-16.0) g/dL Hct 35.8 L (37-47) % Plt Count 287 (130-400) K/uL BMP 03/03/20 06:03 Sodium 142 Potassium 3.9 Chloride 113 H Carbon Dioxide 24 BUN 10 Creatinine 0.71 Glucose 97 Calcium 8.4 L Diagnostic Findings [facility] JONH [phone] XRay Report Patient: FLORENTIN STEWARD Date: 03/01/20 MR#: [id number]: [address] Acct ID:[id number]: Date: 1960[facility] Zip: [place] [address] Age: 60Location: 3N Sex: FRoom[facility] Att Phy: Tatiana Cerrato, DODiagnosis: SBO Ruth Phy: Zuleima Saxena MDService Date: 03/03/20 Fam Phy:Interpreting Phy: Trae Briceno MD Admit Phy: Blayne Patel MD Ordering Phy: Karolyn Murillo PA-C cc: ~ KUB HISTORY: Small bowel obstruction. Follow-up. COMPARISON: KUB 03/02/2020. FINDINGS: Interval improvement in the nondilated gas-filled loops of small bowel within the left side the abdomen. These currently measure up to 2.1 cm in diameter, previously measuring 2.9 cm. There is gas seen throughout the colon. No renal calculi. No ureteral calculi. Calcifications in the deep pelvis likely represent phleboliths. No pneumoperitoneum or pneumatosis. IMPRESSION: Interval improvement/resolution of the dilated loops of small bowel. ACT 112: Negative or not required by law. Electronically signed by: Trae Briceno M.D. 03/03/2020 7:52 AM Medications Administered Current Inpatient Medications Acetaminophen (Acetaminophen 1000 Mg/100 Ml Iv) 1,000 mg IV Q8H PRN PRN Reason: Pain or Fever Stop: 03/04/20 18:15 Last Admin: 03/02/20 21:21 Dose: 1,000 mg Documented by: Enoxaparin Sodium (Enoxaparin Inj 40 Mg/0.4 Ml Syr) 40 mg SQ QAM [facility] Stop: 04/01/20 11:44 Last Admin: 03/03/20 09:01 Dose: 40 mg Documented by: Potassium Chloride/Dextrose/Sod Cl (D5nss + 20meq Kcl) 20 meq in 1,000 mls @ 80 mls/hr IV .[id number] [facility] Stop: 03/04/20 09:00 Last Admin: 03/03/20 12:39 Dose: 80 mls/hr Documented by: Magnesium Sulfate/Dextrose (Magnesium Sulfate / D5w) 1 gm in 100 mls @ 50 mls/hr IV Q2H [facility] Stop: 03/03/20 14:59 Last Admin: 03/03/20 11:37 Dose: 50 mls/hr Documented by: Morphine Sulfate (Morphine Sulfate 4 Mg/Ml 1 Ml Carp\Vial) 3 mg IV Q4H PRN PRN Reason: Moderate Pain Stop: 03/15/20 18:15 Ondansetron HCl (Ondansetron Inj 2 Mg/Ml 2 Ml Vial) 4 mg IV Q6H PRN PRN Reason: Nausea Stop: 03/31/20 18:15
[2020-03-03] MEDS: LORATADINE 10 MG TAB PO SCH (14:04)
[2020-03-04] MEDS: D5NSS + 20MEQ KCL 20 MEQ/1,000 ML BAG IV SCH (01:00)
[2020-03-04 06:19] LABS: Hematocrit (blood only) 36.9 % (37-47); Hemoglobin 12.3 g/dL (12.0-16.0); Mean Corpuscular Hemoglobin 30.5 pg (25-34); Mean Corpuscular Hgb Conc 33.3 g/dL (32-36); Mean Corpuscular Volume 91.6 fL (80-100); Mean Platelet Volume 10.8 fL (7.4-10.4); Platelet Count 299 K/uL (130-400); RDW Coefficient of Variation 13.3 % (11.5-14.5); RDW Standard Deviation 44.9 fL (36.4-46.3); Red Blood Count 4.03 M/uL (4.2-5.4); White Blood Count 6.01 K/uL (4.8-10.8)
[2020-03-04 07:47] LABS: BUN Creatinine Ratio 8.2 (10-20); Est GFR (African American) 99.7; Potassium 4.2 mmol/L (3.5-5.1)
[2020-03-04] MEDS: ENOXAPARIN INJ 40 MG/0.4 ML SYR SQ SCH (09:06)
[2020-03-04] MEDS: LORATADINE 10 MG TAB PO SCH (09:06)
[2020-03-04] MEDS: LACTOBACILLUS ACIDOPHILUS (FLORANEX) TAB PO SCH (09:06)
[2020-03-04] MEDS: MAGNESIUM OXIDE 400 MG TAB PO SCH (09:06)
--- NOTE | 2020-03-04 11:29 | Surgery Progress Note ---
Date of Service March 04, 2020 Assessment & Plan (1) Small bowel obstruction: doing well clinically will advance to full liquids for lunch. if tolerates could have soft diet for dinner or breakfast tomorrow. possible d/c tomorrow [facility] covering for weekend. Admission and Anticipated Discharge Date Admission Date: March 01, 2020 Subjective pt seen. feeling well. no pain or nausea. rashel clears. had small bm yesterday. Physical Exam Physical Exam: alert. nad. abd: soft. nt. +bs's. Results & Data ([facility]) Vital Signs (Past 12 Hours) Vital Signs Temp Pulse Resp BP Pulse Ox 03/04/20 07:20 36.7 C 49 L 16 117/72 96 PG Care Time/CCT Total # of Minutes Spent Total Time Spent with Patient: Total time spent is greater than 50% in coordination of care (as documented) at patient's floor/unit and/or counseling patient: Coding Level of Care Code 27462 Subseq Hosp Care Lvl 2 Diagnoses Small bowel obstruction K56.609
[2020-03-05] MEDS: MAGNESIUM OXIDE 400 MG TAB PO SCH (09:04)
[2020-03-05] MEDS: ENOXAPARIN INJ 40 MG/0.4 ML SYR SQ SCH (09:04)
[2020-03-05] MEDS: LACTOBACILLUS ACIDOPHILUS (FLORANEX) TAB PO SCH (09:04)
[2020-03-05] MEDS: LORATADINE 10 MG TAB PO SCH (09:04)
--- NOTE | 2020-03-05 10:41 | Surgery Progress Note ---
Date of Service pt is doing fine, no abdominal pain, passed BM and gas, she tolerated clear diet, March 05, 2020 Assessment & Plan Admission and Anticipated Discharge Date Admission Date: March 01, 2020 Supervising Physician Co-Signing Physician Notes Attending addendum: The patient was seen and examined in emergency room She is a 60-year-old female with significant past surgical history of section and bilateral salpingo-oophorectomy has been complaining of abdominal pain for the last 4 days with bloating and nausea She still complains pain in the abdomen during examination Denies any other symptoms . On examination Anxious without any significant distress Hemodynamically stable Chest-clear to auscultate bilaterally Heart-S1-S2 regular Abdomen-minimally distended, soft, mildly tender in epigastrium and all over without any guarding and rigidity, bowel sounds present Extremities-trace edema bilateral Admission labs and imaging studies reviewed CT of the abdomen pelvis did show SBO Surgery consulted Apparently she was exposed to a cold with positive patient about 14 days ago. Doubt any COVID and the COVID test is pending as an outpatient. She will be under PUI until the test comes back. Agree with assessment plan as outlined above by EVANGELISTA Tam Dr 03/05/2020 10: 40am Dr. Garnica doing fine, SBO resolved pt can discharged home today F/U Dr. Rey 1 week Subjective pt seen. feeling well. no pain or nausea. rashel clears. had small bm yesterday. Physical Exam Constitutional: WD/WN, vitals as above well developed and well nourished Eyes: PERRL, conjunctivae normal, anicteric sclerae ENMT: external ear and nose normal, oropharynx normal Neck: trachea midline, no thyromegaly Respiratory: normal respiratory effort, lungs clear to auscultation Cardiovascular: RRR, no murmur, no edema Rate/Rhythm: regular rate and regular rhythm Gastrointestinal (Abdomen): normal bowel sounds, soft, nontender, no hepatosplenomegaly NT, ND, BS + Musculoskeletal: no cyanosis or clubbing, extremities motor strength 5/5 Skin: no rashes, warm and dry Neurologic: patellar DTR's 2+ bilat, sensation intact Psychiatric: Orientation: alert and oriented x 3 Results & Data ([facility]) Vital Signs (Past 12 Hours) Vital Signs Temp Pulse Resp BP BP Pulse Ox 03/05/20 07:35 36.6 C 47 L 15 120/76 94 03/04/20 23:00 36.6 C 57 L 18 94/55 L 97
--- NOTE | 2020-03-05 11:28 | Discharge Summary ---
Date of Service March 05, 2020 Admission HPI Per Admitting Provider Pt is 60 y/o F with PMH diet controlled dyslipidemia presented to ER with c/o abdominal pain x 1-2 days. C/O upper abdominal pain initially and today diffuse abdominal pain that worsened. Tried tea and toast this morning which aggravated pain. Some nausea without vomiting or diarrhea. Denies passing flatus today. Denies any fever or chills. H/O , hysterectomy and lysis of adhesions in past. Denies h/o SBO. Pt had exposure to co-worker on 02/14/2020 who tested positive for COVID-19. That co-worker has been out of work since and pt denies any other co-workers with any symptoms or illness. Pt has not had any fever, vomiting, diarrhea, cough, SOB, rhinorrhea, sore throat. Denies diaphoresis, JAY, dizziness, syncope, vision changes, neck pain, CP, SOB, orthopnea, palpitations, cough, choking, otalgia, paresthesias, weakness, extremity weakness, extremity edema, rashes, urinary symptoms. Admission Exam Per Admitting Provider General: no distress, WDWN Head: normocephalic, atraumatic Eyes: conjunctiva non-injected, anicteric ENT: normal inspection external ears, nose, mucous membranes moist Neck: supple, trachea midline Lungs: clear, no respiratory distress, no wheezing/rhonchi/rales CV: RRR, no murmur, no JVD, no pretibial edema Abd: hypoactive BS, soft, mild tenderness to palpation LUQ without rebound or guarding Ext: no cyanosis, no calf tenderness Neuro: A&O x 3, no focal deficits noted, normal affect Skin: warm, dry Principal Diagnosis SBO Discharge Exam CONSTITUTIONAL: WNWD, vitals as above, generally well-appearing EYES: pupils are equal and round bilaterally, normal conjunctivae, no scleral icterus ENT: MMM RESPIRATORY: clear to auscultation bilaterally, no crackles, rales or wheezes, normal respiratory effort CARDIOVASCULAR: regular rate and rhythm, S1 and 2 heard without murmurs, gallops or rubs, no JVD, no peripheral edema GASTROINTESTINAL: hypoactive bowel sounds, NT, Nondistended. MUSCULOSKELETAL: strength 5/5 throughout, head is normocephalic and atraumatic, ambulates around the room without issue SKIN: warm and dry NEUROLOGIC: No facial palsy, CN 2-12 grossly intact, normal cognition, normal speech, no tremor PSYCHIATRIC: alert cooperative and oriented to person, place and time. Discharge Data Allergies Allergy/AdvReac Type Severity Reaction Status Date / Time No Known Allergies Allergy Verified 03/01/20 14:16 Consultations 03/01/20 15:23 ED Decision to Admit Stat 03/01/20 18:16 Consult General Surgery Routine Ordered Studies 03/01/20 12:55 CT abd pelvis IV con only Stat Hospital Course (1) Small bowel obstruction: Admitted to floor on Hospitalist team with general surgery consulted. Pt did not require an NGT, and nausea and pain progressively improved with bowel rest. After a couple of days, clears were started and she tolerated advancement of diet over the remainder of her hospitalization. She was tolerating solid food reliably at time of discharge. She was mentating and ambulating well and was stable for discharge. (2) Exposure to COVID-19 virus: Pt had exposure to co-worker on 02/14/2020 who tested positive for COVID-19. That co-worker has been out of work since and pt denies any other co-workers with any symptoms or illness. Pt did not have any fever, vomiting, diarrhea, cough, SOB, rhinorrhea, sore throat COVID test report was negative as of 03/02 and a copy was placed in her chart with precautions removed as this was performed outside this facility. (3) Hypomagnesemia: was taken off oral Mg supplements. On daily lab screening this was slightly low and was replaced with IV magnesium. Total Time Total Time Spent Total Time Spent (In Minutes): 60 Total Time Includes: Examination of the Patient, Discharge Planning, Medication Reconciliation, Communication With Other Providers and Other (filed her [facility] paperwork) Discharge Plan Discharge Items Patient Disposition: Home - Self-Care Reason For Visit: SBO Discharge Diagnosis: SBO Condition on Discharge: Good Activity: Resume your previous activity Non-emergency contact: Primary Care Provider Call non-emergency contact if: you have any medication questions, your symptoms worsen, your pain is not controlled, your pain is worsening, your pain is unusual for you, your pain is concerning for you and you have a fever Follow-up/Referrals: Power Rey, [Surgeon] - 03/15/20 9:00 am Zuleima Saxena MD [Primary Care Provider] - 03/10/20 12:00 pm (03/10/2020 12:00 PM Provider Zuleima Saxena MD Department Internal Medicine [facility] ) Diet: Regular Addtl Attending Provider Instructions: Please take all medications as instructed on discharge list below. Per surgeon instructions, please take small bites and stop eating when you feel full-try not to overeat. Please follow-up with your primary care physician (PCP) when scheduled within the next week. It was a pleasure taking care of you! Please call if you have any questions or problems. You can reach a [facility] hospitalist on duty at [facility] 24 hours a day by calling [phone]. Take care of yourself. Tatiana Cerrato DO [facility] Pending Studies at Discharge: No Stand-Alone Forms: My [facility], Smoking Cessation Medications and DC Order Prescriptions: Continued magnesium 250 mg Tablet 250 mg PO QAM RF: 0 loratadine 10 mg Tablet 10 mg PO QAM RF: 0 Probiotic 3 billion cell Capsule 3,000 mmu cells PO DAILY RF: 0 pediatric multivitamin Tablet,Chewable 2 tab PO QAM RF: 0 Discharge Orders: Discharge Order (Routine); Ordered 03/05/20 Ordered By: Tatiana Gonzalez/Other Patient Handouts: Small Bowel Obstruction, Anatomy of the Digestive System, How the Colon Works Admission Data Admit Date/Time: 03/01/20 15:49 Attending Provider: Tatiana Cerrato Admit Provider: Blayne Patel Primary Care Provider: Zuleima Saxena Other Providers: Power Rey Other Interventions: Discharge Summary Assessment (RN) Last Done: 03/05/20 12:27
== END 2020-03-05 13:41 | disposition home or self-care (01) | DRG 389 ==
LOC: ED 12:30 → SUATTDRO 15:49 → 3N 15:49